=== PATIENT | female | born 1985 | race Caucasian/White ===

== ENCOUNTER 2016-11-02 09:16 | Emergency (ER) | payer BC, OTHER ==
[~2016-11-02] VITALS: Wt 60.0 kg
[~2016-11-02 09:16] MED LIST: LEVO75CA
[2016-11-02 09:50] LABS: URINE BLOOD (Dip) POC Negative (NEGATIVE)
--- NOTE | 2016-11-02 10:06 | RADRPT ---
PROCEDURE: XR Chest. CLINICAL INDICATION: chest pain TECHNIQUE: Single frontal view of the chest was obtained COMPARISON: 10/09/12 FINDINGS: The heart and mediastinum are within normal limits. The lungs are clear. There is no pleural effusion or pneumothorax. RPTAT: AA IMPRESSION: No acute disease. .Norman Silverman MD, MD Date Time Electronically viewed and signed by .Norman Silverman MD, on 11/02/2016 10:05 .S/
--- NOTE | 2016-11-02 10:36 | ERD ---
ER Documentation Chief Complaint Date/Time DATE: 11/02/16 TIME: 10:34 Chief Complaint CHEST PAIN X 2 DAYS HPI This is a 30-year-old female who presents to the emergency department today complaining of chest pain that she has had ongoing for the past several years. Patient states it is intermittent but started up again today. She states that her last episode was approximately one year ago. Patient's E she also has some headache and dizziness. States that she has had a stress test for her heart. She states she also has a history of hypothyroid. States that sometimes she does still anxious but denies any currently. Denies any cough, shortness of breath, blurred vision. ROS All systems reviewed and are negative except as per history of present illness. Medications Home Meds Active Scripts Naproxen* (Naprosyn*) 500 Mg Tablet, 500 MG PO BID Y for PAIN AND/OR INFLAMMATION, #30 TAB Prov:DANIELITO ABEL PA-C 11/02/16 Reported Medications Levothyroxine Sodium (Tirosint) 75 Mcg Capsule, DAILY 10/09/12 Allergies Allergies: Coded Allergies: Penicillins (Verified Allergy, Unknown, 02/22/14) PMhx/Soc History of Surgery: No Hx Miscellaneous Medical Probl: Yes (HYPOTHYROIDISM ) Hx Alcohol Use: No Hx Substance Use: No Hx Tobacco Use: No Physical Exam Vitals Vital Signs Date Time Temp Pulse Resp B/P Pulse Ox O2 Delivery O2 Flow Rate FiO2 11/02/16 09:21 98.0 81 18 152/95 99 Physical Exam Const: Well-appearing, no acute distress Head: Atraumatic Eyes: Normal Conjunctiva ENT: Ears TMs normal. Nose no drainage. Throat no erythema no exudate Neck: Full range of motion..~ No meningismus. Resp: Clear to auscultation bilaterally. No absent breath sounds. No wheezing. Cardio: Regular rate and rhythm, no murmurs Abd: Soft, non tender, non distended. Normal bowel sounds Skin: No petechiae or rashes Neur: Awake and alert Psych: Normal Mood and Affect Results 24 hrs Laboratory Tests Test 11/02/16 09:52 Bedside Urine Blood Negative Bedside Urine Glucose (UA) Negative Bedside Urine Ketones (LAB) Negative Bedside Urine Leukocyte Esterase (L Negative Bedside Urine Nitrite (LAB) Negative Bedside Urine Protein (LAB) Negative Bedside Urine pH (LAB) 7.5 DIAGNOSTIC IMAGING REPORT Patient: LORENA STYLES : 1985 Age: 30 Sex: F [id number] DOS: 11/02/16 0000 Ordering MD: DANIELITO ABEL PA-C Location: [facility] Room/Bed: PROCEDURE: XR Chest. CLINICAL INDICATION: chest pain TECHNIQUE: Single frontal view of the chest was obtained COMPARISON: 10/09/12 FINDINGS: The heart and mediastinum are within normal limits. The lungs are clear. There is no pleural effusion or pneumothorax. RPTAT: AA IMPRESSION: No acute disease. .Norman Silverman MD, Date Time Electronically viewed and signed by .Norman Silverman MD, MD on 11/02/2016 10: 05 .S/ CC: DANIELITO ABEL PA-C Procedures/MDM This is a 30-year-old female who presents to the emergency department today complaining of some left-sided chest pain, headache and dizziness. Patient indicates she has had chest pain for years and has had a stress test but has never seen a video machines mechanic. 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 Given the patient's symptoms of headache and dizziness I did offer to obtain laboratory work to rule out any source of infection, electrolyte imbalance or presence of anemia however patient declined at this time stating that approximately one month ago she had laboratory work that was fine. She did indicate that she does have heavy menstrual cycles. I did obtain a UA, chest x-ray and EKG UA is negative for infection test is negative Chest x-ray is negative. suspicion for PE, pneumonia, pleural effusion, pneumothorax, abscess EKG read and interpreted by Dr. Ma. Rate [address] elevation. No QT prolongation. Normal sinus rhythm with incomplete right bundle-branch block. Patient has not had a syncopal episode. Low suspicion for acute MN, PE, pericarditis She does not take any oral contraceptive pills. She has not had any prolonged travel and has no shortness of breath or cough and have low suspicion for PE. I did offer to give the patient pain medication here in the emergency department and patient stated that she had Tylenol in her purse. Prior to discharge I asked patient if she had taken any of the Tylenol she stated "I forgot". Patient is afebrile and otherwise well appearing. Patient's symptoms at this time may be related to intermittent costochondritis versus anxiety related symptoms. Patient will be given a prescription for Naprosyn. I've explained to the patient that she should follow-up with a video machines mechanic given the length and duration of her symptoms. I will give the patient a list of resources or cardiology as patient does appear to have good follow-up with her primary care physician. At this time the patient is stable for discharge and outpatient management. Patient should follow up with their PCP in the next 1-2 days. They may return to the emergency department sooner for any persistent or worsening of symptoms. Patient understood and agreed with the plan. Departure Diagnosis: Primary Impression: Chest pain Chest pain type: unspecified Qualified Code: R07.9 - Chest pain, unspecified type Condition: DANIELITO Lovell PA-C Nov 02, 2016 10:36
[2016-11-02] MEDS ORDERED: NAPR-260 PO (10:48)
[2016-11-02 11:18] VITALS: BP 138/88; PULSE 77; RESP 18; TEMP 98.2
== END 2016-11-02 11:18 | disposition home or self-care (01) ==
LOC: FTE 09:16
DX: R07.9 Chest pain, unspecified (principal); E03.9 Hypothyroidism, unspecified
CPT/HCPCS: 71010; 81003

== ENCOUNTER 2018-04-22 14:52 | Emergency (ER) | END 2018-04-22 18:00 | disposition home or self-care (01) ==

== ENCOUNTER 2018-05-15 16:17 | Emergency (ER) | END 2018-05-15 19:02 | disposition home or self-care (01) ==